=== PATIENT | male | born 1960 | race African-American/Black ===

== ENCOUNTER 2021-04-30 15:54 | Emergency (ER) | payer SELFPAY ==
[~2021-04-30] VITALS: Ht 190.5 cm; Wt 95.3 kg
--- NOTE | 2021-04-30 15:54 | NUR ---
PT SENT FROM URGENT CARE FOR NEW ONSET A FIB. DENIES CP TODAY. 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 WILL CONTINUE TO MONITOR.
--- NOTE | 2021-04-30 16:23 | NUR ---
AT BEDSIDE FOR EVAL.
--- NOTE | 2021-04-30 16:35 | NUR ---
IV LINE ESTABLISHED BLOOD DRAWN AND SENT TO LAB.
--- NOTE | 2021-04-30 16:39 | NUR ---
REGULATORY AFFAIRS STRATEGY SPECIALIST AT BEDSIDE FOR XRAY.
[2021-04-30 17:18] LABS: BASOPHILS # (AUTO) 0.1 K/uL (0.0-0.2); BASOPHILS % (AUTO) 0.7 % (0.0-2.0); EOSINOPHILS % (AUTO) 0.3 % (0.0-6.0); HEMATOCRIT 40 % (39-51); HEMOGLOBIN 13.5 g/dL (13.5-17.5); LYMPHOCYTES % (AUTO) 22.7 % (20.0-44.0); MEAN CORPUSCULAR HGB CONC 34 g/dl (31.0-36.0); MEAN CORPUSCULAR VOLUME 80 fL (80-96); MONOCYTES # (AUTO) 1.1 K/uL (0.1-1.30); MONOCYTES % (AUTO) 8.2 % (2.0-12.0); NEUTROPHILS # (AUTO) 8.9 K/uL (1.8-8.9); NEUTROPHILS % (AUTO) 68.1 % (43.0-81.0); PLATELET COUNT (AUTO) 245 K/uL (150-450); RED BLOOD CELL COUNT(AUTO) 4.97 MIL/uL (4.5-6.0); WHITE BLOOD COUNT (AUTO) 13.1 K/uL (4.3-11.0)
[2021-04-30 17:21] LABS: CALCIUM, SERUM 8.5 mg/dL (8.5-10.1); CREATININE 1.3 mg/dL (0.6-1.3); POTASSIUM 3.8 mmol/L (3.5-5.1)
[2021-04-30] MEDS ORDERED: HEPARIN SODIUM, PORCINE 5000 UNITS/1 ML VIAL ONE (18:21)
[2021-04-30] MEDS ORDERED: ASPIRIN 81 MG TAB.CHEW ONE (18:22)
--- NOTE | 2021-04-30 18:23 | NUR ---
FACESHEET AND CLINICALS FAXED TO [facility],SPOKE WITH ART RN, HE WILL PRESENT THEM TO THE SENIOR MANAGER ASSET PROTECTION ON-CALL
--- NOTE | 2021-04-30 18:27 | NUR ---
ART RN CALLED AND VERIFIED THAT HE RECEIVED THE FAX AND WILL CALL CARDIO ON-CALL
[2021-04-30] MEDS ORDERED: HEPARIN SODIUM, PORCINE 5000 UNITS/1 ML VIAL IV ONE (18:30)
[2021-04-30] MEDS ORDERED: ASPIRIN 81 MG TAB.CHEW PO ONE (18:30)
--- NOTE | 2021-04-30 18:30 | NUR ---
DR LONG WENT TO SEEPATIENT TO FULLY EXPLAIN THE IMPORTANCE OF TX TO PATIENT SAFETY TECH. INSPITE OF THE LENGTHY EXPLANATION, HE STILL INSISTED ON LEAVING AMA
--- NOTE | 2021-04-30 18:39 | NUR ---
Patient does not wish to proceed with medical care recommended by Dr. Delgado. Patient given information related to possible complications, up to and including , which could occur as a result of leaving the hospital at this time. Patient verbalizes understanding of risks involved due to leaving against medical advice. Patient has signed AMA form.
[2021-04-30 18:40] VITALS: BP 127/73
--- NOTE | 2021-04-30 18:41 | NUR ---
CALL FROM ART RN SAYING THAT PATIENT HAD AN OLD INFARCT AND DOES NOT NEED TO BE TRANSFERED. INFORMED HIM ALSO THAT PATIENT LEFT AMA
== END 2021-04-30 18:40 | disposition left against medical advice (07) ==
LOC: ER 16:00
DX: I21.4 Non-ST elevation (NSTEMI) myocardial infarction (principal)
CPT/HCPCS: 36415; 71045; 80048; 84484 ×2; 85025; 85378; 93005 ×4; 96374; 99291; J1644